=== PATIENT | male | born 1970 | race Caucasian/White ===

== ENCOUNTER → 2018-11-27 | Outpatient (CLI) | payer BC, MEDICAID ==
[~2018-11-27] MED LIST: AMLO10TA PO; AMLO5TAB2 PO; ASP81TEC PO; CATHETER FLUSH 10 ML SYR IV PRN; CRV25T PO; FLUT16SP13 NS; HOLD METFORMIN - RECEIVED CONTRAST 20 ML VIAL IV SCH; IOHEXOL 350 MG/ML 100 ML (OMNIPAQUE 350) VIAL IV ONE; LISI1TAB10 PO; LISI1TAB8 PO; LOVA20TA2 PO; NF-SYM625 PO; NS 100 ML (IVPB) BAG IV ONE; POTA-51 PO; SITA1TAB6 PO
--- NOTE | 2018-11-27 12:27 | Diagnostic Imaging Report ---
PROCEDURE: CT angiography of the chest with contrast. TECHNIQUE: Multiple contiguous axial images were obtained through the chest after uneventful bolus administration of intravenous contrast. 2D reconstructed CTA MIP acquisitions were also performed. Auto Exposure Controls were utilized during the CT exam to meet ALARA standards for radiation dose reduction. INDICATION: Shortness of air and elevated d-dimer. COMPARISON: No prior studies are available for comparison. FINDINGS: Evaluation of the pulmonary arterial system is without evidence of thromboembolism. No filling defects are seen within central, lobar or segmental branches. Thoracic aorta is normal caliber. There is no dissection. The heart is enlarged. There are small to moderate bilateral pleural effusions which layer dependently. Parenchymal evaluation does show some mildly prominent interlobular septa and some mosaic attenuation pattern throughout both lungs. Findings may be owing to mild CHF. There also appear to be some mildly prominent lymph nodes in the mediastinum, indeterminate. Upper abdomen demonstrates a 5.3 cm cyst in the right kidney upper pole as well as several small nonobstructing calculi. Small cyst upper pole left kidney is also seen. IMPRESSION: 1. No evidence of pulmonary embolism or thoracic aortic dissection. 2. Bilateral effusions and prominent interstitial changes, perhaps owing to congestive failure. 3. Nonspecific mediastinal lymphadenopathy. 4. Bilateral renal cysts and nonobstructing right renal calculi. Dictated by: Dictated on workstation # [id number]
== END ==
LOC: RAD 11:31
PROVIDERS: ATTEND Family Medicine
DX: J90 Pleural effusion, not elsewhere classified (principal); N28.1 Cyst of kidney, acquired; N20.0 Calculus of kidney; R59.0 Localized enlarged lymph nodes
CPT/HCPCS: 71275

== ENCOUNTER → 2021-04-01 | Outpatient (CLI) | payer BC ==
[~2021-04-01] MED LIST changes: -CATHETER FLUSH 10 ML SYR IV PRN; -HOLD METFORMIN - RECEIVED CONTRAST 20 ML VIAL IV SCH; -IOHEXOL 350 MG/ML 100 ML (OMNIPAQUE 350) VIAL IV ONE; +LISI1TAB46 PO; -NS 100 ML (IVPB) BAG IV ONE
--- NOTE | 2021-04-01 12:39 | Diagnostic Imaging Report ---
INDICATION: Left ankle injury and pain. TIME OF EXAM: 11:53 AM. FINDINGS: Three views of the left ankle were obtained. The alignment is normal. The ankle mortise is well maintained. The talar dome is smooth. No fractures are seen. There appears to be generalized soft tissue swelling about the medial and lateral ankle. IMPRESSION: Soft tissue swelling. No acute bony abnormality is detected. Dictated by: Dictated on workstation # [id number]
--- NOTE | 2021-04-01 12:39 | Diagnostic Imaging Report ---
INDICATION: Left foot and ankle injury with pain. TIME OF EXAM: 11:55 AM. FINDINGS: Three views of the left foot were obtained. The metatarsals are intact. The phalanges are intact. The midfoot and hindfoot are unremarkable. No fractures are seen. IMPRESSION: No acute bony abnormality is detected. Dictated by: Dictated on workstation # [id number]
== END ==
LOC: RAD 11:24
PROVIDERS: ATTEND Nurse Practitioner Family
DX: S99.912A Unspecified injury of left ankle, initial encounter (principal); S99.922A Unspecified injury of left foot, initial encounter; W19.XXXA Unspecified fall, initial encounter
CPT/HCPCS: 73610; 73630

== ENCOUNTER 2022-02-01 10:06 | Observation (INO) | payer SELFPAY ==
[~2022-02-01] VITALS: Ht 175.3 cm; Wt 101.8 kg
[2022-02-01] MEDS ORDERED: FUROSEMIDE 40 MG/4 ML INJ (LASIX) IVP ONE (10:30)
[2022-02-01] MEDS ORDERED: NITROGLYCERIN 0.4 MG SL TABS BTL 25'S SL PRN (10:30)
[2022-02-01] MEDS ORDERED: ASPIRIN 81 MG CHEW (CHILDREN'S ASA) PO ONE (10:30)
[2022-02-01 10:35] LABS: BASOPHILS # (AUTO) 0.1 10^3/uL (0.0-0.1); BASOPHILS % (AUTO) 1 % (0-10); EOSINOPHILS # (AUTO) 0.1 10^3/uL (0.0-0.3); EOSINOPHILS % (AUTO) 1 % (0-10); HEMATOCRIT 36 % (40-54); HEMOGLOBIN 11.8 g/dL (13.3-17.7); LYMPHOCYTES # (AUTO) 1.3 10^3/uL (1.0-4.0); LYMPHOCYTES % (AUTO) 13 % (12-44); MEAN CORPUSCULAR HEMOGLOBIN 29 pg (25-34); MEAN CORPUSCULAR HGB CONC 33 g/dL (32-36); MEAN CORPUSCULAR VOLUME 88 fL (80-99); MEAN PLATELET VOLUME 9.8 fL (9.0-12.2); MONOCYTES # (AUTO) 0.5 10^3/uL (0.0-1.0); MONOCYTES % (AUTO) 5 % (0-12); NEUTROPHILS # (AUTO) 8.1 10^3/uL (1.8-7.8); NEUTROPHILS % (AUTO) 80 % (42-75); PLATELET COUNT 271 10^3/uL (130-400); WHITE BLOOD COUNT 10.1 10^3/uL (4.3-11.0)
[2022-02-01 10:41] LABS: ALBUMIN 3.6 GM/DL (3.2-4.5)
[2022-02-01 10:42] LABS: INR 1.2 (0.8-1.4); POTASSIUM 3.2 MMOL/L (3.6-5.0); PROTHROMBIN TIME PATIENT 15.6 SEC (12.2-14.7)
[2022-02-01 10:43] LABS: CALCIUM 8.6 MG/DL (8.5-10.1)
--- NOTE | 2022-02-01 10:43 | ED Respiratory ---
General Chief Complaint: Respiratory Problems Stated Complaint: TROUBLE BREATHING Source: patient Exam Limitations: no limitations History of Present Illness Date Seen by Provider: Feb 01, 2022 Time Seen by Provider: 10:13 Initial Comments Patient to the ER by private conveyance with chief complaint last week he has been getting progressively worsening shortness of air. He is not have any fevers or chills. He is not having a productive cough. He has a history of heart failure. He follows with Dr. Warner and used to follow with Dr. VELASCO but he lost his insurance in July. He also stopped taking his medications routinely at that time. He does occasionally take Lasix when he can get it. He was on Coreg and went to Dr. Meredith's [place] and was told that his oxygen saturations ranged anywhere from 61% to 88%. He is denying any chest pain. He has not had any nausea vomiting diarrhea dysuria or constipation. No known sick contacts. He does not use oxygen at baseline. He does have a history of hypertension but no hyperlipidemia. His father started having coronary disease issues in his 40s. He does occasionally use cocaine with his last use being earlier this year. Prediabetic. Allergies and Home Medications Allergies Coded Allergies: No Known Drug Allergies (Unverified , 12/25/14) Patient Home Medication List Home Medication List Reviewed: Yes Carvedilol (Coreg) 25 Mg Tab, 25 MG PO BID Prescribed by: ALISA VELASCO on 05/05/16 1032 Lisinopril/Hydrochlorothiazide (Lisinopril-Hctz 20-12.5 mg Tab) 1 Each Tablet, 2 EACH PO DAILY Prescribed by: ALISA VELASCO on 05/05/16 1032 Olanzapine/Fluoxetine HCl (Symbyax 6-25 mg Capsule) 1 Ea Cap, 1 EA PO HS Prescribed by: ALISA VELASCO on 05/05/16 1032 Review of Systems Review of Systems Constitutional: No chills, No fever, No malaise EENTM: No ear discharge, No ear pain Respiratory: No cough, No short of breath Cardiovascular: No edema, No Hx of Intervention, No palpitations Gastrointestinal: No abdominal pain, No nausea, No vomiting Genitourinary: No discharge, No dysuria Musculoskeletal: No joint swelling, No muscle pain Skin: No pruritus, No rash Psychiatric/Neurological: Denies Headache, Denies Numbness All Other Systems Reviewed Negative Unless Noted: Yes Past Jekvefr-Mprveo-Cdmyew Hx Patient Social History Tobacco Use?: No Use of E-Cig and/or Vaping dev: No Substance use?: No Alcohol Use?: Yes Alcohol type: Beer Alcohol Frequency: Once in a while Pt feels they are or have been: No Immunizations Up To Date Tetanus Booster (TDap): Unknown PED Vaccines UTD: No Influenza Vaccine Up-to-Date: Yes; Up-to-Date First/Initial COVID19 Vaccinat: 2020 Second COVID19 Vaccination Bert: 2020 Seasonal Allergies Seasonal Allergies: No Past Medical History Surgery/Hospitalization HX: HTN, CHF Sleep Apnea Hypertension Reproductive Disorders: No Sexually Transmitted Disease: No HIV/AIDS: No Anxiety, Suicide Attempts, Depression Adverse Reaction/Blood Tranf: No Family Medical History Heart Disease, Cancer, CAD Under 55 Years Old, Hypertension Physical Exam Vital Signs - First Documented 02/01/22 10:08 Temp 36.9 Pulse 94 Resp 24 B/P (MAP) 194/138 (156) Capillary Refill : Height: 5'9.00" Weight: 203lbs. 8.0oz. 92.380177rk; 29.4 BMI Method:Stated General Appearance: WD/WN, mild distress Eyes: Bilateral Eye Normal Inspection, Bilateral Eye PERRL, Bilateral Eye EOMI HEENT: PERRL/EOMI, normal ENT inspection, TMs normal, pharynx normal Neck: full range of motion, supple, normal inspection Respiratory: lungs clear, normal breath sounds, respiratory distress (Tachypnea, 25 to 30 breaths/min, maintaining oxygen saturations 95% since he got here. He is on room air.) Cardiovascular: normal peripheral pulses, regular rate, rhythm, other (Mild edema bilateral lower extremities. Blood pressure 201/136.) Gastrointestinal: non tender Neurologic/Psychiatric: alert; No normal mood/affect (Restless); oriented x 3 Skin: normal color, warm/dry Progress/Results/Core Measures Suspected Sepsis SIRS Temperature: Pulse: Respiratory Rate: Laboratory Tests 02/01/22 10:15: White Blood Count 10.1 Blood Pressure / Mean: Laboratory Tests 02/01/22 10:15: Creatinine 0.99, INR Comment 1.2, Platelet Count 271, Total Bilirubin 2.1H Results/Orders Lab Results Laboratory Tests Test 02/01/22 10:15 02/01/22 10:24 02/01/22 11:53 Range/Units White Blood Count 10.1 4.3-11.0 10^3/uL Red Blood Count 4.14 L 4.30-5.52 10^6/uL Hemoglobin 11.8 L 13.3-17.7 g/dL Hematocrit 36 L 40-54 % Mean Corpuscular Volume 88 80-99 fL Mean Corpuscular Hemoglobin 29 25-34 pg Mean Corpuscular Hemoglobin Concent 33 32-36 g/dL Red Cell Distribution Width 15.0 H 10.0-14.5 % Platelet Count 271 130-400 10^3/uL Mean Platelet Volume 9.8 9.0-12.2 fL Immature Granulocyte % (Auto) 0 % Neutrophils (%) (Auto) 80 H 42-75 % Lymphocytes (%) (Auto) 13 12-44 % Monocytes (%) (Auto) 5 0-12 % Eosinophils (%) (Auto) 1 0-10 % Basophils (%) (Auto) 1 0-10 % Neutrophils # (Auto) 8.1 H 1.8-7.8 10^3/uL Lymphocytes # (Auto) 1.3 1.0-4.0 10^3/uL Monocytes # (Auto) 0.5 0.0-1.0 10^3/uL Eosinophils # (Auto) 0.1 0.0-0.3 10^3/uL Basophils # (Auto) 0.1 0.0-0.1 10^3/uL Immature Granulocyte # (Auto) 0.0 0.0-0.1 10^3/uL Prothrombin Time 15.6 H 12.2-14.7 SEC INR Comment 1.2 0.8-1.4 Activated Partial Thromboplast Time 33 24-35 SEC Sodium Level 140 135-145 MMOL/L Potassium Level 3.2 L 3.6-5.0 MMOL/L Chloride Level 104 98-107 MMOL/L Carbon Dioxide Level 25 21-32 MMOL/L Anion Gap 11 5-14 MMOL/L Blood Urea Nitrogen 15 7-18 MG/DL Creatinine 0.99 0.60-1.30 MG/DL Estimat Glomerular Filtration Rate 91 BUN/Creatinine Ratio 15 Glucose Level 98 70-105 MG/DL Calcium Level 8.6 8.5-10.1 MG/DL Corrected Calcium 8.9 8.5-10.1 MG/DL Magnesium Level 1.8 1.6-2.4 MG/DL Total Bilirubin 2.1 H 0.1-1.0 MG/DL Aspartate Amino Transf (AST/SGOT) 20 5-34 U/L Alanine Aminotransferase (ALT/SGPT) 21 0-55 U/L Alkaline Phosphatase 71 40-136 U/L Myoglobin 82.1 10.0-92.0 NG/ML Troponin I 0.130 H 0.117 H <0.028 NG/ML B-Type Natriuretic Peptide 1034.8 H <100.0 PG/ML Total Protein 7.3 6.4-8.2 GM/DL Albumin 3.6 3.2-4.5 GM/DL Influenza Type A (RT-PCR) Not Detected Not Detecte Influenza Type B (RT-PCR) Not Detected Not Detecte SARS-CoV-2 RNA (RT-PCR) Not Detected Not Detecte My Orders Orders - DEZ,SABRINA J Ekg Tracing (02/01/22 10:21) Cbc With Automated Diff (02/01/22 10:28) Magnesium (02/01/22 10:28) Chest 1 View, Ap/Pa Only (02/01/22 10:28) Comprehensive Metabolic Panel (02/01/22 10:28) Myoglobin Serum (02/01/22 10:28) Protime With Inr (02/01/22 10:28) Partial Thromboplastin Time (02/01/22 10:28) O2 (02/01/22 10:28) Monitor-Rhythm Ecg Trace Only (02/01/22 10:28) Lipid Panel (02/02/22 06:00) Ed Iv/Invasive Line Start (02/01/22 10:28) Bnp [place] (02/01/22 10:28) Troponin I Marcos (02/01/22 10:28) Nitroglycerin 0.4 Mg Btl 25's (Nitrostat (02/01/22 10:30) Aspirin Chewable Tablet (Baby Aspirin Ch (02/01/22 10:30) Furosemide Injection (Lasix Injection) (02/01/22 10:30) Covid 19 Inhouse Test (02/01/22 11:07) Influenza A And B By Pcr (02/01/22 11:07) Nitroglycerin Ointment (Nitrobid Ointme (02/01/22 11:05) Troponin I Marcos (02/01/22 11:47) Ceftriaxone 1 Gm Pre-Mix (Rocephin 1 Gm (02/01/22 13:15) Azithromycin Tablet (Zithromax Tablet) (02/01/22 13:15) Enoxaparin Injection (Lovenox Injection) (02/01/22 13:45) Enoxaparin Injection (Lovenox Injection) (02/01/22 13:45) Ed Admission (Communication) (02/01/22 13:35) Medications Given in ED Current Medications Medications Dose Ordered Sig/Egorge Route Start Time Stop Time Status Last Admin Dose Admin Aspirin 324 mg ONCE ONCE PO 02/01/22 10:30 02/01/22 10:31 DC 02/01/22 10:35 324 MG Furosemide 40 mg ONCE ONCE IVP 02/01/22 10:30 02/01/22 10:31 DC 02/01/22 10:35 40 MG Nitroglycerin 0.4 mg UD PRN SL 02/01/22 10:30 02/01/22 10:35 0.4 MG Nitroglycerin 1 inch STK-MED ONCE .ROUTE 02/01/22 11:05 02/01/22 11:09 DC 02/01/22 11:10 1 INCH Vital Signs/I&O 02/01/22 10:08 Temp 36.9 Pulse 94 Resp 24 B/P (MAP) 194/138 (156) Capillary Refill : Progress Note #1: Time: 10:39 Progress Note I suspect that he is in acute on chronic congestive heart failure. He does have elevated blood pressure significantly as well as some heart strain seen with ST elevation of 1 block in leads V2, V3, V4. We will give him some aspirin and nitroglycerin to help reduce his heart strain and Lasix 40 mg. He has not had any chest pain. Progress Note #2: Time: 13:37 Progress Note The patient has produced 2400 cc of urine on the 40 of Lasix we gave him. His blood pressure has significantly improved at 164/110. He is still not having any chest pain and feeling a little more comfortable but still tachypneic. ECG Initial ECG Impression Date: Feb 01, 2022 Initial ECG Impression Time: 10:25 Initial ECG Rate: 96 Initial ECG Rhythm: Normal Sinus Initial ECG Intervals: Normal Initial ECG Impression: Nonspecific Changes Comment Normal sinus rhythm with intraventricular conduction delay. There is a 1 block elevation of the ST wave in leads V2, V3 and V4 that is not diagnostic for STEMI. Diagnostic Imaging Diagonstic Imaging: Xray Plain Films/CT/US/NM/MRI: chest Comments [facility]. [place], [place] NAME: LALY MALDONADO [facility] REC#: [id number] PT STATUS: REG ER : 1970 PHYSICIAN: SABRINA GARCES MD ADMIT DATE: 02/01/22/ER Draft Date of Exam:02/01/22 CHEST 1 VIEW, AP/PA ONLY CLINICAL INDICATIONS: Patient with trouble breathing/chest pain. EXAM: Portable chest x-ray upright view. COMPARISON: Chest x-ray dated 05/03/2016. FINDINGS: There is interval development of groundglass and patchy airspace opacity involving right midlung field and right lung base. Small airspace opacity in the left lower lung field region which slightly obscures the left heart border. There is no pleural effusion or pneumothorax. Stable cardiomegaly. Pulmonary vasculature is within normal limits. There are small degenerative spurs involving the thoracic spine. IMPRESSION: 1: There is interval follow amount of airspace opacities involving right midlung field and right lung base which may represent lung infiltrates. 2: There is also a small airspace opacity involving the left lower lung field/left upper border which may represent lung infiltrate. 3: There is cardiomegaly with no significant pulmonary vascular congestion. Dictated on workstation # [id number] Dict: 02/01/22 1119 Trans: 02/01/22 1125 CV [id number] Interpreted by: EILSABETH BELCHER MD Electronically signed by: Reviewed: Reviewed by Me Departure Communication (Admissions) Time/Spoke to Admitting Phy: 13:[address] Bentley and she agrees to admit the patient with cardiac consultation. She will put in queued orders. Time/Spoke to Consulting Phy: 13:33 Discussed the case with Dr. Monique who agrees to consult on the case. He would like Lovenox 1 mg/kg and Lasix 40 mg twice daily. Impression Primary Impression: Acute on chronic heart failure Qualified Codes: I50.9 - Heart failure, unspecified Disposition: ADMITTED INPATIENT Condition: Stable Admissions Decision to Admit Reason: Admit from ER (General) Decision to Admit/Date: Feb 01, 2022 Time/Decision to Admit Time: 13:29 Departure-Patient Inst. Referrals: ALISA VELASCO DO (PCP/Family) Primary Care Physician SABRINA GARCES Feb 01, 2022 10:43
[2022-02-01 10:44] LABS: TOTAL PROTEIN 7.3 GM/DL (6.4-8.2)
[2022-02-01 10:46] LABS: BILIRUBIN,TOTAL 2.1 MG/DL (0.1-1.0)
[2022-02-01 10:48] LABS: CREATININE SERUM 0.99 MG/DL (0.60-1.30)
[2022-02-01 10:50] LABS: MAGNESIUM 1.8 MG/DL (1.6-2.4)
[2022-02-01] MEDS ORDERED: NITROGLYCERIN 2% OINT 1 GM UNIT DOSE PACKET ONE (11:05)
--- NOTE | 2022-02-01 11:25 | Diagnostic Imaging Report ---
CLINICAL INDICATIONS: Patient with trouble breathing/chest pain. EXAM: Portable chest x-ray upright view. COMPARISON: Chest x-ray dated 05/03/2016. FINDINGS: There is interval development of groundglass and patchy airspace opacity involving right midlung field and right lung base. Small airspace opacity in the left lower lung field region which slightly obscures the left heart border. There is no pleural effusion or pneumothorax. Stable cardiomegaly. Pulmonary vasculature is within normal limits. There are small degenerative spurs involving the thoracic spine. IMPRESSION: 1: There is interval follow amount of airspace opacities involving right midlung field and right lung base which may represent lung infiltrates. 2: There is also a small airspace opacity involving the left lower lung field/left upper border which may represent lung infiltrate. 3: There is cardiomegaly with no significant pulmonary vascular congestion. Dictated by: Dictated on workstation # [id number]
[2022-02-01] MEDS ORDERED: AZITHROMYCIN 250 MG TAB (ZITHROMAX) PO ONE (13:15)
[2022-02-01] MEDS ORDERED: cefTRIAXone 1 GM PRE-MIX 50 ML IV ONE (13:15)
[2022-02-01] MEDS ORDERED: ENOXAPARIN 80 MG/0.8 ML (LOVENOX) SYR SC ONE (13:45)
[2022-02-01] MEDS ORDERED: ENOXAPARIN INJECTION 30 MG/0.3 ML SYR SC ONE (13:45)
[2022-02-01] MEDS ORDERED: ENOXAPARIN 40 MG/0.4 ML (LOVENOX) SYR SC SCH (14:00)
[2022-02-01] MEDS ORDERED: MELATONIN 3 MG TABLET PO PRN (14:15)
[2022-02-01] MEDS ORDERED: ANTACID SUSP 30 ML UDC (MYLANTA) PO PRN (14:15)
[2022-02-01] MEDS ORDERED: MILK OF MAGNESIA 400 MG/5 ML 30 ML UDC PO PRN (14:15)
[2022-02-01] MEDS ORDERED: PATIENT MAY USE OWN MEDS, ALL PO SCH (14:15)
[2022-02-01] MEDS ORDERED: KCL 20 MEQ TAB (K-DUR) PO ONE (14:15)
[2022-02-01] MEDS ORDERED: ONDANSETRON 4 MG/2 ML (SDV) Z0FRAN IV PRN (14:15)
[2022-02-01 14:45] VITALS: BP 169/102
--- NOTE | 2022-02-01 14:47 | History & Physical-Hospitalist ---
History of Present Illness HPI/Chief Complaint Pt is a 51yoCM with a PMH of HTN, CHF, illicit drug use who presented to the ER due to SOB and hypertensive. He reports he lost his insurance in July and has been unable to see his PCP or get hiis medications since then. He attempted to ration what he had left but has been without them for months now. He was seen by Evonne Wood NP at Dr Meredith's today and advised to seek evaluation in the ER. He was found to have acutely decompensated HF and admitted for observation. He reports feeling better already since first dose of lasix and breathing is improving. Source: patient Date Seen 02/01/22 Time Seen by a Provider: 14:30 Attending Physician Cecille Allen DO PCP Admitting Physician: Praveena Bentley MD Attending Physician: Praveena Bentley MD Referring Physician Date of Admission Feb 01, 2022 at 13:35 Home Medications & Allergies Home Medications Reviewed patient Home Medication Reconciliation performed by pharmacy medication reconciliations central sterilization technician and/or nursing. Patients Allergies have been reviewed. Allergies Allergies Coded Allergies No Known Drug Allergies (Unverified02/01/22) Past Fkquvhk-Juxpmw-Rwrdlo Hx Patient Social History Marrital Status: Employed/Student: unemployed Tobacco Use?: No Use of E-Cig and/or Vaping dev: No Substance use?: No Alcohol Use?: Yes Alcohol type: Beer Alcohol Frequency: Once in a while Pt feels they are or have been: No Immunizations Up To Date First/Initial COVID19 Vaccinat: 2020 Second COVID19 Vaccination Bert: 2020 Tetanus Booster (TDap): Unknown Hepatitis A: Yes Hepatitis B: Yes PED Vaccines UTD: No Seasonal Allergies Seasonal Allergies: No Current Status Communicates: Verbally Primary Language: Guyanese Preferred Spoken Language: Guyanese Past Medical History Sleep Apnea Hypertension Sexually Transmitted Disease: No HIV/AIDS: No Anxiety, Suicide Attempts, Depression Adverse Reaction/Blood Tranf: No Family Medical History Reviewed Nursing Family Hx Heart Disease, Cancer, CAD Under 55 Years Old, Hypertension Review of Systems Constitutional: No chills, No fever EENTM: no symptoms reported Respiratory: cough, dyspnea on exertion, short of breath Cardiovascular: chest pain Gastrointestinal: no symptoms reported Genitourinary: no symptoms reported Musculoskeletal: no symptoms reported Skin: no symptoms reported Psychiatric/Neurological: No Symptoms Reported Physical Exam Physical Exam Vital Signs Vital Signs - First Documented 02/01/22 02/01/22 10:08 14:45 Temp 36.9 Pulse 94 Resp 24 B/P (MAP) 194/138 (156) Pulse Ox 93 O2 Delivery Room Air Capillary Refill : Height, Weight, BMI Height: 5'9.00" Weight: 203lbs. 8.0oz. 92.165579es; 36.00 BMI Method:Stated General Appearance: No Apparent Distress, WD/WN, Anxious HEENT: PERRL/EOMI, Moist Mucous Membranes; No Scleral Icterus (L), No Scleral Icterus (R) Neck: Normal Inspection, Supple Respiratory: Lungs Clear, No Accessory Muscle Use, No Respiratory Distress, Other (Tachypneic) Cardiovascular: Regular Rate, Rhythm, No Murmur Gastrointestinal: Normal Bowel Sounds, Non Tender, Soft Extremity: Normal Capillary Refill, No Calf Tenderness, No Pedal Edema Neurologic/Psychiatric: Alert, Oriented x3, Normal Mood/Affect Skin: Normal Color, Warm/Dry Results Results/Procedures Labs Laboratory Tests 02/03/22 07:38 Patient resulted labs reviewed. Imaging: Reviewed Imaging Report Imaging [facility] [place], [place] NAME: JO[facility]LLALY [facility] REC#: [id number] PT STATUS: ADM Yolette : 1970 PHYSICIAN: SABRINA GARCES MD ADMIT DATE: 02/01/22 Signed Date of Exam:02/01/22 CHEST 1 VIEW, AP/PA ONLY CLINICAL INDICATIONS: Patient with trouble breathing/chest pain. EXAM: Portable chest x-ray upright view. COMPARISON: Chest x-ray dated 05/03/2016. FINDINGS: There is interval development of groundglass and patchy airspace opacity involving right midlung field and right lung base. Small airspace opacity in the left lower lung field region which slightly obscures the left heart border. There is no pleural effusion or pneumothorax. Stable cardiomegaly. Pulmonary vasculature is within normal limits. There are small degenerative spurs involving the thoracic spine. IMPRESSION: 1: There is interval follow amount of airspace opacities involving right midlung field and right lung base which may represent lung infiltrates. 2: There is also a small airspace opacity involving the left lower lung field/left upper border which may represent lung infiltrate. 3: There is cardiomegaly with no significant pulmonary vascular congestion. Dictated by: Dictated on workstation # [id number] Dict: 02/01/22 1119 Trans: 02/01/22 1715 CVB [id number] Interpreted by: ELISABETH BELCHER MD Electronically signed by: ELISABETH BELCHER MD 02/01/22 1715 Assessment/Plan Admission Diagnosis CHF exacerbation Admission Status: Observation Assessment and Plan CHF exacerbation HTN Emergency NSTEMI On room air but dyspneic BNP elevated Continue IV lasix Cardiology consulted, appreciate recs Troponin slightly elevated, ASA and Lovenox given BP improving echo pending CAP Continue abx not septic DVT ppx: Clinical Quality Measures AMI/AHF: ASA po Prior to arrival: PRAVEENA Overton MD Feb 01, 2022 14:47
[2022-02-01 16:45] VITALS: BP 161/97
[2022-02-01] MEDS ORDERED: LOSARTAN 25 MG (COZAAR) TAB PO NR (17:30)
[2022-02-01] MEDS ORDERED: ACETAMINOPHEN 500 MG TAB (TYLENOL) PO PRN (17:30)
[2022-02-01 19:24] VITALS: BP 170/100
[2022-02-01] MEDS: FUROSEMIDE 40 MG/4 ML INJ (LASIX) IV SCH (19:58)
[2022-02-01 20:21] VITALS: BP 151/90
[2022-02-01 23:36] VITALS: BP 153/95
[2022-02-02] VITALS (8 sets, daily range): BP systolic 137–169; BP diastolic 92–122
[2022-02-02 05:51] LABS: HEMATOCRIT 34 % (40-54); HEMOGLOBIN 11.2 g/dL (13.3-17.7); MEAN CORPUSCULAR HEMOGLOBIN 28 pg (25-34); MEAN CORPUSCULAR HGB CONC 33 g/dL (32-36); MEAN CORPUSCULAR VOLUME 85 fL (80-99); MEAN PLATELET VOLUME 10.1 fL (9.0-12.2); PLATELET COUNT 261 10^3/uL (130-400); WHITE BLOOD COUNT 9.1 10^3/uL (4.3-11.0)
[2022-02-02 06:04] LABS: POTASSIUM 2.9 MMOL/L (3.6-5.0)
[2022-02-02 06:05] LABS: CALCIUM 8.2 MG/DL (8.5-10.1)
[2022-02-02 06:10] LABS: CREATININE SERUM 0.94 MG/DL (0.60-1.30)
--- NOTE | 2022-02-02 08:37 | Consultation-Cardiology ---
HPI-Cardiology Cardiology Consultation Date of Consultation 02/02/22 Date of Admission Time Seen by Provider: 08:33 Indication: Congestive heart failure HPI 51-year-old gentleman with severe cardiomyopathy, nonischemic. Patient ran out of his medication for the past 5 months. He lost his insurance. He started to have back pain and increasing shortness of breath and pedal edema. Came into the emergency room and responded to aggressive diuresis. On my evaluation he was feeling better. Denied any chest pain. No palpitation. No syncope or near syncopal episodes Home Medications & Allergies Allergies: Coded Allergies: No Known Drug Allergies (Unverified , 02/01/22) Home Medication List Reviewed: Yes CGI-Irvcar-Monyeo Hx Patient Social History Marital Status: Employed/Student: unemployed Drug of Choice: Cocaine, opiates Smoking Status: Never a Smoker Recent Hopitalizations: No Have you traveled recently?: No Alcohol Use?: Yes Immunizations Up To Date Tetanus Booster (TDap): Unknown Past Medical History Discussed below Family Medical History Significant Family History: Heart Disease, Cancer, CAD Under 55 Years Old, Hypertension Family Medical Hx Noncontributory Review of Systems-General Review of Systems Constitutional: No chills, No fever; malaise, weakness EENTM: No ear discharge, No ear pain Respiratory: see HPI; No cough; dyspnea on exertion, short of breath Cardiovascular: see HPI, chest pain; No edema, No Hx of Intervention, No palpitations, No syncope, No vascular heart diseas, No other Gastrointestinal: No abdominal pain, No nausea, No vomiting Genitourinary: No discharge, No dysuria Musculoskeletal: No joint swelling, No muscle pain Skin: No pruritus, No rash Psychiatric/Neurological: Denies Headache, Denies Numbness All Other Systems Reviewed Negative Unless Noted: Yes Reviewed Test Results Reviewed Test Results Lab Laboratory Tests Test 02/01/22 10:15 02/01/22 10:24 02/01/22 11:53 02/02/22 05:13 Range/Units White Blood Count 10.1 9.1 4.3-11.0 10^3/uL Red Blood Count 4.14 L 3.96 L 4.30-5.52 10^6/uL Hemoglobin 11.8 L 11.2 L 13.3-17.7 g/dL Hematocrit 36 L 34 L 40-54 % Mean Corpuscular Volume 88 85 80-99 fL Mean Corpuscular Hemoglobin 29 28 25-34 pg Mean Corpuscular Hemoglobin Concent 33 33 32-36 g/dL Red Cell Distribution Width 15.0 H 14.8 H 10.0-14.5 % Platelet Count 271 261 130-400 10^3/uL Mean Platelet Volume 9.8 10.1 9.0-12.2 fL Immature Granulocyte % (Auto) 0 % Neutrophils (%) (Auto) 80 H 42-75 % Lymphocytes (%) (Auto) 13 12-44 % Monocytes (%) (Auto) 5 0-12 % Eosinophils (%) (Auto) 1 0-10 % Basophils (%) (Auto) 1 0-10 % Neutrophils # (Auto) 8.1 H 1.8-7.8 10^3/uL Lymphocytes # (Auto) 1.3 1.0-4.0 10^3/uL Monocytes # (Auto) 0.5 0.0-1.0 10^3/uL Eosinophils # (Auto) 0.1 0.0-0.3 10^3/uL Basophils # (Auto) 0.1 0.0-0.1 10^3/uL Immature Granulocyte # (Auto) 0.0 0.0-0.1 10^3/uL Prothrombin Time 15.6 H 12.2-14.7 SEC INR Comment 1.2 0.8-1.4 Activated Partial Thromboplast Time 33 24-35 SEC Sodium Level 140 138 135-145 MMOL/L Potassium Level 3.2 L 2.9 L 3.6-5.0 MMOL/L Chloride Level 104 103 98-107 MMOL/L Carbon Dioxide Level 25 23 21-32 MMOL/L Anion Gap 11 12 5-14 MMOL/L Blood Urea Nitrogen 15 17 7-18 MG/DL Creatinine 0.99 0.94 0.60-1.30 MG/DL Estimat Glomerular Filtration Rate 91 97 BUN/Creatinine Ratio 15 18 Glucose Level 98 98 70-105 MG/DL Calcium Level 8.6 8.2 L 8.5-10.1 MG/DL Corrected Calcium 8.9 8.5-10.1 MG/DL Magnesium Level 1.8 1.6-2.4 MG/DL Total Bilirubin 2.1 H 0.1-1.0 MG/DL Aspartate Amino Transf (AST/SGOT) 20 5-34 U/L Alanine Aminotransferase (ALT/SGPT) 21 0-55 U/L Alkaline Phosphatase 71 40-136 U/L Myoglobin 82.1 10.0-92.0 NG/ML Troponin I 0.130 H 0.117 H <0.028 NG/ML B-Type Natriuretic Peptide 1034.8 H <100.0 PG/ML Total Protein 7.3 6.4-8.2 GM/DL Albumin 3.6 3.2-4.5 GM/DL Influenza Type A (RT-PCR) Not Detected Not Detecte Influenza Type B (RT-PCR) Not Detected Not Detecte SARS-CoV-2 RNA (RT-PCR) Not Detected Not Detecte Triglycerides Level 54 <150 MG/DL Cholesterol Level 116 < 200 MG/DL LDL Cholesterol Direct 89 1-129 MG/DL VLDL Cholesterol 11 5-40 MG/DL HDL Cholesterol 31 L 40-60 MG/DL Physical Exam Physical Exam Vital Signs Vital Signs - First Documented 02/01/22 02/01/22 10:08 14:45 Temp 36.9 Pulse 94 Resp 24 B/P (MAP) 194/138 (156) Pulse Ox 93 O2 Delivery Room Air Capillary Refill : Height, Weight, BMI Height: 5'9.00" Weight: 203lbs. 8.0oz. [id number]; 33.55 BMI Method:Stated General Appearance: No Apparent Distress, WD/WN Eyes: Bilateral Eye Normal Inspection, Bilateral Eye PERRL, Bilateral Eye EOMI HEENT: PERRL/EOMI, TMs Normal, Normal ENT Inspection, Pharynx Normal, Moist Mucous Membranes Neck: Full Range of Motion, Normal Inspection, Non Tender, Supple, Carotid B ruit Respiratory: Chest Non Tender, Normal Breath Sounds, No Accessory Muscle Use, No Respiratory Distress Cardiovascular: Regular Rate, Rhythm, No Edema, No JVD, Normal Peripheral Pulses, Systolic Murmur, Gallop/S3 Gastrointestinal: Normal Bowel Sounds, No Organomegaly, No Pulsatile Mass, Non Tender, Soft Back: Normal Inspection, No CVA Tenderness, No Vertebral Tenderness Extremity: Normal Capillary Refill, Normal Inspection, Normal Range of Motion, Non Tender, No Calf Tenderness, No Pedal Edema Neurologic/Psychiatric: Alert, Oriented x3, No Motor/Sensory Deficits, Normal Mood/Affect Skin: Normal Color, Warm/Dry Lymphatic: No Adenopathy A/P-Cardiology Admission Diagnosis Congestive heart failure, acute on chronic left ventricular systolic dysfunction, nonischemic cardiomyopathy Hypertension Chest pain Assessment/Plan Congestive heart failure, acute on chronic left ventricular systolic dysfunction, nonischemic cardiomyopathy, no recent work-up. Echo done in February 01, 2022 EF 25% I am starting Coreg and losartan. Will continue maximizing medical therapy and consider a LifeVest. Chest pain, nonspecific etiology, atypical. Appears to be musculoskeletal. Mild coronary artery disease per cardiac catheterization 2016, nonobstructive disease. Hypertension, poor control, started on Coreg and losartan, monitor tolerance and response History of alcoholism, currently drink occasionally. Educated on avoiding alcoh ol History of illicit drug use, he has stopped using cocaine and any illegal drugs at least for the past 2 years History of testicular mass. Hypokalemia, secondary to aggressive diuresis, replace and monitor Clinical Quality Measures AMI/AHF: ASA po Prior to arrival: CHYNA Brooke MD Feb 02, 2022 08:37
[2022-02-02] MEDS: ASPIRIN 81 MG CHEW (CHILDREN'S ASA) PO SCH (08:57)
[2022-02-02] MEDS: LOSARTAN 100 MG (COZAAR) TABLET PO SCH (08:57)
[2022-02-02] MEDS: KCL 20 MEQ TAB (K-DUR) PO SCH (08:57)
[2022-02-02] MEDS: FUROSEMIDE 40 MG/4 ML INJ (LASIX) IV SCH ×2 (08:58→19:36)
[2022-02-02] MEDS: POTASSIUM CL 10MEQ/50ML IVPB 50 ML IV SCH ×2 (08:58→10:17)
[2022-02-02] MEDS ORDERED: LOSARTAN 25 MG (COZAAR) TAB PO SCH (09:00)
--- NOTE | 2022-02-02 10:53 | Progress Note - Hospitalist ---
Subjective HPI/CC On Admission Date Seen by Provider: Feb 02, 2022 Pt is a 51yoCM with a PMH of HTN, CHF, illicit drug use who presented to the ER due to SOB and hypertensive. He reports he lost his insurance in July and has been unable to see his PCP or get hiis medications since then. He attempted to ration what he had left but has been without them for months now. He was seen by Evonne Wood NP at Dr Meredith[facility] today and advised to seek evaluation in the ER. He was found to have acutely decompensated HF and admitted for observation. He reports feeling better already since first dose of lasix and breathing is improving. Subjective/Events-last exam Pt reports feeling much better. No complaints. Denies SOB but when reclines he is visibly dyspneic. Pt has multiple questions about getting financial assistance and about pursuing disability. Objective Exam Vital Signs Vital Signs Date Time Temp Pulse Resp B/P (MAP) Pulse Ox O2 Delivery O2 Flow Rate FiO2 02/02/22 08:58 Room Air 02/02/22 07:51 36.9 80 22 161/122 (135) 94 Capillary Refill : General Appearance: No Apparent Distress, Anxious Respiratory: Lungs Clear, Other (dyspneic when reclined) Cardiovascular: Regular Rate, Rhythm, No Murmur Neurologic/Psychiatric: Alert, Oriented x3 Results/Procedures Lab Laboratory Tests 02/02/22 05:13 Patient resulted labs reviewed. Assessment/Plan Assessment and Plan Assess & Plan/Chief Complaint CHF exacerbation HTN Emergency NSTEMI On room air but remains dyspneic Continue IV lasix Cardiology consulted, appreciate recs BP improving Echo shows EF of 25% Discussed with Dr Monique, patient will need fitted for LifeVest, will eventually need a cath Continue ASA, coreg, losaratan CAP Continue abx not septic DVT ppx: Lovenox Clinical Quality Measures AMI/AHF: ASA po Prior to arrival: PRAVEENA Overton MD Feb 02, 2022 10:53
[2022-02-02] MEDS ORDERED: KCL 20 MEQ TAB (K-DUR) PO NR (11:30)
[2022-02-02] MEDS: AZITHROMYCIN 250 MG TAB (ZITHROMAX) PO SCH (11:38)
[2022-02-02] MEDS: CEPHALEXIN 250 MG (KEFLEX) CAP PO SCH ×2 (11:39→19:37)
[2022-02-02] MEDS ORDERED: ENOXAPARIN 40 MG/0.4 ML (LOVENOX) SYR SC SCH (14:00)
[2022-02-03 03:36] VITALS: BP 163/96
[2022-02-03] MEDS: KCL 20 MEQ TAB (K-DUR) PO SCH (06:09)
[2022-02-03 08:03] LABS: POTASSIUM 3.3 MMOL/L (3.6-5.0)
[2022-02-03 08:04] LABS: CALCIUM 9.1 MG/DL (8.5-10.1)
[2022-02-03 08:09] LABS: CREATININE SERUM 1.1 MG/DL (0.60-1.30)
[2022-02-03 08:11] LABS: MAGNESIUM 2.1 MG/DL (1.6-2.4)
[2022-02-03 08:30] VITALS: BP 179/112
[2022-02-03] MEDS: FUROSEMIDE 40 MG/4 ML INJ (LASIX) IV SCH (08:50)
[2022-02-03] MEDS: LOSARTAN 100 MG (COZAAR) TABLET PO SCH (08:51)
[2022-02-03] MEDS: CEPHALEXIN 250 MG (KEFLEX) CAP PO SCH (08:51)
[2022-02-03] MEDS: AZITHROMYCIN 250 MG TAB (ZITHROMAX) PO SCH (08:51)
[2022-02-03] MEDS: ASPIRIN 81 MG CHEW (CHILDREN'S ASA) PO SCH (08:51)
--- NOTE | 2022-02-03 09:39 | Cardiology Progress Note ---
Subjective Date Seen by Provider: Feb 03, 2022 Time Seen by Provider: 08:40 Subjective/Events-last exam Patient laying down in bed, reports dyspnea has significantly improved. Denies any chest pain Review of Systems General: No Chills, No Night Sweats; Fatigue; No Malaise, No Appetite, No Other HEENT: No Head Aches, No Visual Changes, No Eye Pain, No Ear Pain, No Dy sphasia, No Sinus Congestion, No Post Nasal Drip, No Sore Throat, No Other Pulmonary: No Dyspnea, No Cough, No Pleuritic Chest Pain, No Other Cardiovascular: No: Chest Pain, Palpitations, Orthopnea, Paroxysmal Noc. Dyspnea, Edema, Lt Headedness, Other Objective-Cardiology Exam Last Set of Vital Signs Vital Signs 02/03/22 08:30 Temp 36.8 Pulse 85 Resp 19 B/P (MAP) 179/112 (134) Pulse Ox 95 O2 Delivery Room Air I&O Intake and Output 02/03/22 00:00 Intake Total 3034 ml Output Total 2900 ml Balance 134 ml Intake Oral 3000 ml IV Total 34 ml Output Urine Total 2900 ml # Voids 12 # Bowel Movements 1 General: Alert, Oriented X3, Cooperative HEENT: Atraumatic Neck: Supple, No JVD Lungs: Clear to Auscultation, Normal Air Movement Heart: Regular Rate, Normal S1, Normal S2 Abdomen: Soft, No Tenderness Extremities: No Clubbing, Other (trace edema) Skin: No Rashes, No Breakdown Neuro: Normal Speech, Cranial Nerves 3-12 NL Psych/Mental Status: Mental Status NL, Mood NL Results Lab Laboratory Tests 02/03/22 07:38 A/P-Cardiology Admission Diagnosis Congestive heart failure, acute on chronic left ventricular systolic dysfunction, nonischemic cardiomyopathy Hypertension Chest pain Assessment/Plan Congestive heart failure, acute on chronic left ventricular systolic dysfunction, nonischemic cardiomyopathy, no recent work-up. Echo done in February 01, 2022 EF 25% Started on Coreg and losartan, lasix. I will change IV Lasix to 40mg PO daily, additional dose as need Will continue maximizing medical therapy LifeVest ordered We discussed in length regarding limiting fluid intake and avoiding any alcohol. Consider stress test as outpatient Chest pain, nonspecific etiology, atypical. Appears to be musculoskeletal. Mild coronary artery disease per cardiac catheterization 2015, nonobstructive disease. Hypertension, poor control, started on Coreg and losartan, monitor tolerance and response History of alcoholism, currently drink occasionally. Educated on avoiding alcohol History of illicit drug use, he has stopped using cocaine and any illegal drugs at least for the past 2 years History of testicular mass. Hypokalemia, secondary to aggressive diuresis, replace and monitor Supervisory-Addendum Brief Supervisory Addendum Participated in pt care: history, MDM, physical Personally performed: exam, history, MDM Care discussed with: BRANDAN Results interpretation: Verified all documentation Notes: Patient was seen and evaluated with Devika, examination performed, management plan was discussed, agree with the current scribed note, I made few changes to the note using Italic font Patient was seen at bedside, sitting comfortably, feeling better Breathing better Discussed in length the management plan, compliance with diet and medication with limiting fluid intake and avoiding alcohol Daily weight I will arrange for follow-up as an outpatient DEVIKA SANCHES Feb 03, 2022 09:39 CHYNA BURNS MD Feb 03, 2022 11:08
[2022-02-03] MEDS ORDERED: KCL 20 MEQ TAB (K-DUR) PO NR (10:00)
[2022-02-03] MEDS ORDERED: CEPH250C PO (10:29)
[2022-02-03] MEDS ORDERED: FURO-124 PO (10:29)
[2022-02-03] MEDS ORDERED: ASPI81TA64 PO (10:29)
[2022-02-03] MEDS ORDERED: CARV6.252 PO (10:29)
[2022-02-03] MEDS ORDERED: AZIT250T12 PO (10:29)
[2022-02-03] MEDS ORDERED: LOSA100T57 PO (10:29)
[2022-02-03 11:36] VITALS: BP 154/96
--- NOTE | 2022-02-03 13:20 | Discharge Inst-Simple/Standard ---
Discharge Inst-Standard Discharge Medications New, Converted or Re-Newed RX: Transmitted to Pharmacy Patient Instructions/Follow Up Plan of Care/Instructions/FU: Please continue to take your medications as written. Please follow up with your primary care doctor to follow up this hospital stay. Activity as Tolerated: Yes Discharge Diet: Low Sodium Diet, Cardiac Diet Return to The Hospital For: Chest pain, shortness of breath, fever, weakness, if you feel you are getting worse. PRAVEENA MOBLEY MD Feb 03, 2022 13:20
== END 2022-02-03 14:11 | disposition home or self-care (01) ==
LOC: EDUNIT# 10:06 → ER 10:09 → INTOOBSV 13:35 → UNDOADMOB 13:35 → 4TH 13:35 → UNDODISOB 02-03 14:11
PROVIDERS: ADMIT Family Medicine; ATTEND Family Medicine
DX: I11.0 Hypertensive heart disease with heart failure (principal); I50.9 Heart failure, unspecified; I34.0 Nonrheumatic mitral (valve) insufficiency; I16.0 Hypertensive urgency; I21.4 Non-ST elevation (NSTEMI) myocardial infarction; J18.9 Pneumonia, unspecified organism
CPT/HCPCS: 71045; 80048 ×2; 80053; 80061; 83735 ×2; 83874; 83880; 84484; 85025; 85027; 85610; 85730; 87636; 93005; 93041; 93306; 96366; 96372 ×3; 96374; 96376 ×3; 99284; G0378; 36415

== ENCOUNTER → 2022-05-04 | Outpatient (CLI) | payer OTHER ==
[~2022-05-04] MED LIST changes: +ASPI81TA64 PO; +AZIT250T12 PO; +CARV6.252 PO; +CEPH250C PO; +FURO-124 PO; +LOSA100T57 PO
== END ==
LOC: CARD 11:01
PROVIDERS: ATTEND Internal Medicine Cardiovascular Disease
DX: I51.7 Cardiomegaly (principal); I51.89 Other ill-defined heart diseases; I50.9 Heart failure, unspecified
CPT/HCPCS: 93306

== ENCOUNTER → 2022-08-02 | Outpatient (CLI) | payer OTHER | LOC: CARD 09:33 | PROVIDERS: ATTEND Physician Assistant | DX: I25.10 Atherosclerotic heart disease of native coronary artery without angina pectoris (principal); I11.0 Hypertensive heart disease with heart failure | CPT/HCPCS: 93306 ==

== ENCOUNTER → 2022-08-30 | Outpatient (CLI) | payer OTHER ==
[~2022-08-30] VITALS: Ht 175 cm; Wt 101.0 kg
[~2022-08-30] MED LIST changes: +CATHETER FLUSH 10 ML SYR IVP PRN; +REGADENOSON 0.4 MG/5 ML SYR (LEXISCAN) IV ONE
[2022-08-30 09:15] VITALS: BP 220/118
--- NOTE | 2022-08-30 10:54 | Cardiology Stress Test Report ---
Stress Test Report Date of Procedure/Referring: Date of Procedure: Aug 30, 2022 [facility] Admitting Physician Admitting Physician: Attending Physician: Chyna Monique MD Indications: HTN Baseline Heart Rate: 69 Baseline Blood Pressure: Blood Pressure Systolic: 220 Blood Pressure Diastolic: 118 Baseline Vitals Vital Signs Date Time Temp Pulse Resp B/P (MAP) Pulse Ox O2 Delivery O2 Flow Rate FiO2 08/30/22 09:15 76 220/118 (152) Baseline EKG: Baseline EKG: NSR Summary After explaining the procedure to the patient, he signed a consent and then brought to the stress nuclear laboratory. Patient received 0.4 mg Lexiscan for stress test, ECG, heart rate and blood pressure were monitored continuously. Resting and stress dose of radio tracer were injected, imaging was acquired and reviewed in short axis, horizontal long axis and vertical long axis views. TID: 0.88 SSS: 5 SDS: 3 EF: 36 Patient tolerated Lexiscan well Motion artifact with diaphragmatic attenuation affecting the quality of the images, reversible ischemia involving the mid to apical inferior wall and inferolateral wall Diffuse left ventricular hypokinesia with ejection fraction 36%. Copy Copies To 1: [facility]/CHYNA CLEMENT MD Aug 30, 2022 10:54
== END ==
LOC: CARD 07:37
PROVIDERS: ATTEND Internal Medicine Cardiovascular Disease
DX: I10 Essential (primary) hypertension (principal); I25.10 Atherosclerotic heart disease of native coronary artery without angina pectoris
CPT/HCPCS: 78452; 93017; A9502

== ENCOUNTER 2022-09-08 08:50 | Day surgery (SDC) | payer OTHER ==
[~2022-09-08] VITALS: Ht 175.3 cm; Wt 105.7 kg
[2022-09-08] VITALS (11 sets, daily range): BP systolic 153–194; BP diastolic 86–114
[~2022-09-08 08:50] MED LIST changes: -CATHETER FLUSH 10 ML SYR IVP PRN; -REGADENOSON 0.4 MG/5 ML SYR (LEXISCAN) IV ONE
[2022-09-08] MEDS ORDERED: NS IV 1000 ML 1,000 ML ONE (09:25)
[2022-09-08] MEDS ORDERED: HEParin (CATH LAB) 2,000 ML IV ONE (09:26)
[2022-09-08] MEDS ORDERED: NS IV 1000 ML 1,000 ML IV SCH ×2 (09:30→11:15)
[2022-09-08] MEDS ORDERED: LIDOCAINE 1% INJ 20 ML VIAL ONE (09:33)
[2022-09-08 09:47] LABS: HEMATOCRIT 44 % (40-54); MEAN CORPUSCULAR HEMOGLOBIN 29 pg (25-34); MEAN CORPUSCULAR HGB CONC 34 g/dL (32-36); MEAN CORPUSCULAR VOLUME 86 fL (80-99); MEAN PLATELET VOLUME 9.5 fL (9.0-12.2); PLATELET COUNT 196 10^3/uL (130-400); WHITE BLOOD COUNT 6.7 10^3/uL (4.3-11.0)
--- NOTE | 2022-09-08 09:55 | Cardiac Procedure Note-CS/ASA ---
Pre-Procedure Note Pre-Op Procedure Note Date of Available H&P: Aug 31, 2022 Date H&P Reviewed: Sep 08, 2022 Time H&P Reviewed: 09:54 History & Physical: H&P Reviewed, Patient Examed, No changes noted Pre-Operative Diagnosis: CAD Moderate Sedation PreProcedure Time 09:55 ASA Score 3 Airway Lungs Heart ASA score ASA 1: a normal healthy patient ASA 2: a patient with a mild systemic disease (mid diabetes, controlled hypertension, obesity ASA 3: a patient with a severe systemic disease that limits activity (angina, COPD, prior Myocardial infarction) ASA 4: a patient with an incapacitating disease that is a constant threat to life (CHF, renal failure) ASA 5: a moribund patient not expected to survive 24 hrs. (ruptured aneurysm) ASA 6: a declared brain- patient whose organs are being harvested. For emergent operations, add the letter E after the classification Mallampati Classification Grade 3 Sedation Plan Analgesia, Amnesia, Plan communicated to team members, Discussed options with patient/fam, Discussed risks with patient/fam The patient is an appropriate candidate to undergo the planned procedure, sedation, and anesthesia. The patient immediately re-assessed prior to indication. CHYNA BURNS MD Sep 08, 2022 09:55
[2022-09-08 10:05] LABS: INR 1.1 (0.8-1.4); PROTHROMBIN TIME PATIENT 14.3 SEC (12.2-14.7)
[2022-09-08] MEDS ORDERED: VERAPAMIL 5 MG/2 ML (CALAN) VIAL IV ONE (10:05)
[2022-09-08] MEDS ORDERED: fentaNYL INJ 100 MCG/2 ML AMP ONE (10:05)
[2022-09-08] MEDS ORDERED: HEParin 1000 UNIT/ML (10ML VIAL) FOR BOLUS ONE (10:05)
[2022-09-08] MEDS ORDERED: NITRO DRIP 25000 MCG/D5W 250 ML IV ONE (10:05)
[2022-09-08] MEDS ORDERED: MIDAZOLAM 5 MG/5 ML (VERSED) VIAL ONE (10:05)
--- NOTE | 2022-09-08 10:05 | Diagnostic Imaging Report ---
Clinical indications: Pre-heart catheter with coronary angiography with left ventriculography with possible angioplasty and stent. EXAM: Portable chest x-ray upright view. COMPARISON: Chest x-ray dated 02/01/2022. FINDINGS: Lungs/pleura: There is minimal airspace opacity in the lingular region which is also noted on prior study which may represent atelectasis. The remainder of the lungs are clear. There is no pneumothorax. There is no pleural effusion. Mediastinum: Unremarkable. Pulmonary vasculature: Unremarkable. Heart: Unremarkable. Bones/extrathoracic soft tissue: Unremarkable. IMPRESSION: 1: Stable small airspace opacity in the lingular region which may represent atelectasis or scarring. 2: There is no radiographic evidence of acute cardiopulmonary process. Dictated by: Dictated on workstation # [id number]
[2022-09-08 10:11] LABS: BILIRUBIN,TOTAL 1.2 MG/DL (0.1-1.0); CALCIUM 9.3 MG/DL (8.5-10.1); CREATININE SERUM 1.37 MG/DL (0.60-1.30); POTASSIUM 3.9 MMOL/L (3.6-5.0); TOTAL PROTEIN 7.7 GM/DL (6.4-8.2)
[2022-09-08] MEDS ORDERED: ESCI-2 PO (10:23)
[2022-09-08] MEDS ORDERED: CETI10TA17 PO (10:23)
[2022-09-08] MEDS ORDERED: FURO20TA4 PO (10:23)
[2022-09-08] MEDS ORDERED: CARV25TA PO (10:23)
[2022-09-08] MEDS ORDERED: SPIR50TA4 PO (10:23)
[2022-09-08] MEDS ORDERED: HYDR50TA76 PO (10:23)
[2022-09-08] MEDS ORDERED: ASPI-1238 PO (10:23)
[2022-09-08] MEDS ORDERED: EMPA10TA PO (10:23)
[2022-09-08] MEDS ORDERED: LOSA100T57 PO (10:23)
--- NOTE | 2022-09-08 11:06 | Discharge Inst-Post CATH ---
Discharge Inst-CATH/EP Problems Reviewed?: Yes Post Cardiac Cath/EP D/C Inst Follow Up/Plan Appointment with Dr. Monique's office in 4 weeks <b>CARDIAC CATH/EP PROCEDURE DISCHARGE INSTRUCTIONS</b> ACTIVITY * Go Home directly and rest. * Limit activity of the leg (or wrist if it was used) for 7 days including aerobics, swimming, jogging, bicycling, etc. * Restrict stair-climbing for 7 days if possible, if not, climb up with your non-cath leg, then bring together on the same step. * Avoid lifting, pushing, pulling or excessive movement of the affected extremity for 7 days. * Customary sexual activity may be resumed after 2 days-use caution not to use a position that strains or causes pain to the affected extremity. * No driving for 24 hours. * NO SMOKING. * Avoid straining for bowel movements for 7 days. * Gentle walking on level ground is allowed. * Returning to work will depend on the type of procedure and the results. Your doctor will discuss this with you. CALL YOUR DOCTOR FOR ANY OF THE FOLLOWING: *If bleeding from the puncture site occurs- Apply gentle pressure to site with clean cloth and call your doctor or EMS. * If a knot or lump forms under the skin, increases in size, or causes pain. * If bruising appears to be worsening or moving further down your leg instead of disappearing. * Temperature above 101 F. CARE OF YOUR GROIN INCISION; * Bruising or purple discoloration of the skin near the puncture site is common. * You may shower only, no bathtub bathing for 5 days. Be careful to avoid slipping as your leg may feel stiff. * If a closure device was used on your femoral artery, please see the attached guide regarding care of the device and your leg. * Leave dressing on FOR 24 hours. CARE OF YOUR WRIST INCISION; * Bruising or purple discoloration of the skin near the puncture site is common. * You may shower. * DO NOT submerge wrist. * Leave dressing on FOR 24 hours. CHYNA MONIQUE MD Sep 08, 2022 11:06
--- NOTE | 2022-09-08 11:10 | Cardiac Cath Report ---
Cardiac Cath Report Physician (s)/Group Care Worker (s) Physician CHYNA BURNS MD Pre-Procedure Diagnosis Pre-Procedure Diagnosis: CAD Post-Procedure Note Procedure Start Date: Sep 08, 2022 Name of Procedure: Left heart catheterization IFR to the circumflex artery IFR to the right coronary artery Findings/Procedure Note PROCEDURE NOTE: 52-year-old gentleman with history of hypertension, hyperlipidemia, had an abnormal stress test. Scheduled for cardiac catheterization possible PTCA. After explaining the procedure to the patient, all pros and cons were explained, all questions were answered. The patient signed the consent and then he was placed in the cardiac catheterization laboratory. Groin was prepped in SL fashion local anesthesia was used. Sheath placed in the right radial artery, Alma catheter was advanced to the left ventricular cavity, pressure was measured, pullback LV to aorta was done, engage the right and left coronary system and angiogram was done. Patient had 2 lesions noted in his coronary system, received total of 6000 units of heparin Rad left guide was used and IFR wire was advanced and parked in the distal circumflex artery, IFR was 1.0 Guide was exchanged to a Rad right guide and engaged the right coronary system and IFR was measured through the right coronary artery and it was 0.91. At the end of the procedure the sheath was removed. Vascular band was used FINDINGS: Hemodynamics LV 160/18, end-diastolic pressure of 18 Aorta 159/101 mean of 120 ANATOMY: Left Main is free of obstructive disease Left Anterior Descending has no obstructive disease Left Circumflex has 50% stenosis with 90 degree angle, IFR was 1.0. Nonobstructive disease Right Coronary Artery has diffuse ectasia with 50% stenosis in the mid right coronary artery, IFR was 0.91, nonobstructive disease, dominant artery LV Gram was not done, pressure was measured Dominance right coronary artery CONCLUSION: 50% stenosis in the mid circumflex artery with IFR 1.0 nonobstructive disease 50% stenosis in the mid right coronary artery with ectasia in the proximal right coronary artery, dominant artery, IFR 0.91, nonobstructive disease Otherwise no significant obstructive disease in the LAD. DISCUSSION AND RECOMMENDATION: Continue to maximize medical therapy no intervention is warranted Anesthesia Type: Conscious Sedation Estimated blood loss (mL): 25 ml Contrast Amount: 120 ml Total Radiation Dose: 770 mGy Post-Procedure Diagnosis Post-operative diagnosis: Chest pain Coronary artery disease Hypertension Hyperlipidemia CHYNA BURNS MD Sep 08, 2022 11:10
[2022-09-08] MEDS ORDERED: ATOR10TA PO (11:11)
== END 2022-09-08 14:05 | disposition home or self-care (01) ==
LOC: CATH 08:50 → SDC 11:10 → CATH 14:05
PROVIDERS: ATTEND Internal Medicine Cardiovascular Disease
DX: I25.10 Atherosclerotic heart disease of native coronary artery without angina pectoris (principal); I11.0 Hypertensive heart disease with heart failure; E78.5 Hyperlipidemia, unspecified; R94.39 Abnormal result of other cardiovascular function study; I50.23 Acute on chronic systolic (congestive) heart failure; I42.8 Other cardiomyopathies; F10.21 Alcohol dependence, in remission; E87.6 Hypokalemia; N52.9 Male erectile dysfunction, unspecified; R07.2 Precordial pain; Z79.899 Other long term (current) drug therapy
CPT/HCPCS: 71045; 80053; 80061; 85027; 85347; 85610; 85730; 87081; 93005; 93458; 93571; 93572; C1769; C1887 ×2; C1894; 36415

== ENCOUNTER 2022-10-11 09:58 | Emergency (ER) | payer OTHER ==
[~2022-10-11] VITALS: Ht 175.2 cm; Wt 105.7 kg
[~2022-10-11 09:58] MED LIST changes: +ASPI-1238 PO; +ATOR10TA PO; +CARV25TA PO; +CETI10TA17 PO; +EMPA10TA PO; +ESCI-2 PO; +FURO20TA4 PO; +HYDR50TA76 PO; +SPIR50TA4 PO
--- NOTE | 2022-10-11 10:10 | ED Dyspnea ---
General Stated Complaint: SOB Source of Information: Patient Exam Limitations: No Limitations History of Present Illness Date Seen by Provider: October 11, 2022 Time Seen by Provider: 09:57 Initial Comments 52-year-old male presents emerged department today for shortness of breath. Symptoms started last night and have been progressive throughout the day today. Denies any fevers but has had a progressive cough over the last week or so. He is productive of clear sputum. He had a heart cath about a year ago and states he had 2 stents with 50% blockage but no other occlusions and no interventions performed. All other systems reviewed and negative except documented per HPI. Voice recognition software was used to help create this chart Allergies and Home Medications Allergies Coded Allergies: No Known Drug Allergies (Unverified , 02/01/22) Patient Home Medication List Home Medication List Reviewed: Yes Aspirin (Aspirin EC) 81 Mg Tablet.dr, 81 MG PO DAILY, (Reported) Entered as Reported by: ARTURO TALAMANTES on 09/08/22 1023 Atorvastatin Calcium (Lipitor) 10 Mg Tablet, 10 MG PO DAILY Prescribed by: CHYNA MONIQUE on 09/08/22 1111 Carvedilol (Carvedilol) 25 Mg Tablet, 50 MG PO DAILY, (Reported) Entered as Reported by: ARTURO TALAMANTES on 09/08/22 1023 Cetirizine HCl (Cetirizine HCl) 10 Mg Tablet, 10 MG PO DAILY PRN for ALLERGIES, (Reported) Entered as Reported by: ARTURO TALAMANTES on 09/08/22 1023 Empagliflozin (Jardiance) 10 Mg Tablet, 10 MG PO DAILY, (Reported) Entered as Reported by: ARTURO TALAMANTES on 09/08/22 1023 Escitalopram Oxalate (Escitalopram Oxalate) 10 Mg Tablet, 10 MG PO DAILY, (Reported) Entered as Reported by: ARTURO TALAMANTES on 09/08/22 1023 Furosemide (Furosemide) 20 Mg Tablet, 40 MG PO DAILY, (Reported) Entered as Reported by: ARTURO TALAMANTES on 09/08/22 1023 Hydroxyzine HCl (Hydroxyzine HCl) 50 Mg Tablet, 50 MG PO DAILY, (Reported) Entered as Reported by: ARTURO TALAMANTES on 09/08/22 1023 Losartan Potassium (Losartan Potassium) 100 Mg Tablet, 150 MG PO DAILY, (Reported) Entered as Reported by: ARTURO TALAMANTES on 09/08/22 1023 Spironolactone (Spironolactone) 50 Mg Tablet, 50 MG PO DAILY, (Reported) Entered as Reported by: ARTURO TALAMANTES on 09/08/22 1023 Review of Systems Review of Systems Constitutional: see HPI Past Jxramfl-Fgersn-Ohbkte Hx Immunizations Up To Date Tetanus Booster (TDap): Unknown PED Vaccines UTD: No First/Initial COVID19 Vaccinat: 2020 Second COVID19 Vaccination Bert: 2020 Seasonal Allergies Seasonal Allergies: No Past Medical History Surgery/Hospitalization HX: HTN, CHF Cardiac, Orthopedic Sleep Apnea Currently Using CPAP: No Hypertension Reproductive Disorders: No Sexually Transmitted Disease: No HIV/AIDS: No Anxiety, Suicide Attempts, Depression Adverse Reaction/Blood Tranf: No Family Medical History Heart Disease, Cancer, CAD Under 55 Years Old, Hypertension Physical Exam Vital Signs Vital Signs - First Documented 10/11/22 10:02 Temp 36.0 Pulse 76 Resp 20 B/P (MAP) 142/89 (106) Pulse Ox 99 O2 Delivery Room Air Capillary Refill : Height, Weight, BMI Height: 5'9.00" Weight: 203lbs. 8.0oz. 92.007132ik; 34.39 BMI Method:Stated General Appearance: WD/WN HEENT: Normal ENT Inspection, Pharynx Normal Neck: Full Range of Motion, Normal Inspection, Non Tender, Supple Respiratory: Chest Non Tender, Other (Patient is hyperventilating with accessory muscle use.) Cardiovascular: Regular Rate, Rhythm, No Murmur, Normal Peripheral Pulses Gastrointestinal: Normal Bowel Sounds, No Organomegaly, Non Tender, Soft Extremity: Normal Capillary Refill, Normal Inspection, No Pedal Edema Neurologic/Psychiatric: Alert, Oriented x3 Skin: Normal Color, Warm/Dry Progress/Results/Core Measures Results/Orders Lab Results Laboratory Tests Test 10/11/22 10:07 10/11/22 10:13 10/11/22 12:20 Range/Units White Blood Count 5.8 4.3-11.0 10^3/uL Red Blood Count 5.00 4.30-5.52 10^6/uL Hemoglobin 15.0 13.3-17.7 g/dL Hematocrit 43 40-54 % Mean Corpuscular Volume 86 80-99 fL Mean Corpuscular Hemoglobin 30 25-34 pg Mean Corpuscular Hemoglobin Concent 35 32-36 g/dL Red Cell Distribution Width 13.0 10.0-14.5 % Platelet Count 167 130-400 10^3/uL Mean Platelet Volume 9.5 9.0-12.2 fL Immature Granulocyte % (Auto) 0 % Neutrophils (%) (Auto) 49 42-75 % Lymphocytes (%) (Auto) 29 12-44 % Monocytes (%) (Auto) 19 H 0-12 % Eosinophils (%) (Auto) 2 0-10 % Basophils (%) (Auto) 1 0-10 % Neutrophils # (Auto) 2.9 1.8-7.8 10^3/uL Lymphocytes # (Auto) 1.7 1.0-4.0 10^3/uL Monocytes # (Auto) 1.1 H 0.0-1.0 10^3/uL Eosinophils # (Auto) 0.1 0.0-0.3 10^3/uL Basophils # (Auto) 0.0 0.0-0.1 10^3/uL Immature Granulocyte # (Auto) 0.0 0.0-0.1 10^3/uL Neutrophils % (Manual) 57 % Lymphocytes % (Manual) 24 % Monocytes % (Manual) 13 % Eosinophils % (Manual) 4 % Basophils % (Manual) 0 % Band Neutrophils 2 % Blood Morphology Comment NORMAL D-Dimer 0.42 0.00-0.49 UG/ML Sodium Level 136 135-145 MMOL/L Potassium Level 4.0 3.6-5.0 MMOL/L Chloride Level 104 98-107 MMOL/L Carbon Dioxide Level 22 21-32 MMOL/L Anion Gap 10 5-14 MMOL/L Blood Urea Nitrogen 20 H 7-18 MG/DL Creatinine 1.98 H 0.60-1.30 MG/DL Estimat Glomerular Filtration Rate 39 BUN/Creatinine Ratio 10 Glucose Level 127 H 70-105 MG/DL Calcium Level 8.8 8.5-10.1 MG/DL Corrected Calcium 8.8 8.5-10.1 MG/DL Total Bilirubin 1.1 H 0.1-1.0 MG/DL Aspartate Amino Transf (AST/SGOT) 19 5-34 U/L Alanine Aminotransferase (ALT/SGPT) 14 0-55 U/L Alkaline Phosphatase 96 40-136 U/L Troponin I 0.039 H 0.044 H <0.028 NG/ML Total Protein 8.1 6.4-8.2 GM/DL Albumin 4.0 3.2-4.5 GM/DL SARS-CoV-2 RNA (RT-PCR) Not Detected Not Detecte My Orders Orders - JAMPATRICK Bell Comprehensive Metabolic Panel (10/11/22 10:06) Troponin I [place] (10/11/22 10:06) Fibrin Degradation Products (10/11/22 10:06) Chest 1 View, Ap/Pa Only (10/11/22 10:06) Cbc With Automated Diff (10/11/22 10:06) Ekg Tracing (10/11/22 10:06) Covid 19 Inhouse Test (10/11/22 10:06) Manual Differential (10/11/22 10:07) Troponin I [place] (10/11/22 12:00) Vital Signs/I&O 10/11/22 10:02 Temp 36.0 Pulse 76 Resp 20 B/P (MAP) 142/89 (106) Pulse Ox 99 O2 Delivery Room Air Comment Sinus rhythm with a rate of 67 bpm. First-degree AV block with a [place] of 220. QRS 126. Left axis deviation. No ST or T wave abnormalities. No ectopy. No STEMI. Departure Communication (Admissions) Patient initially seemingly hyperventilating with some moderate respiratory distress. Symptoms improved with observation alone, no interventions. His chest x-ray is clear. His initial troponin is slightly elevated. On record review looks like he always has a slightly elevated troponin is actually less than it had been in the past. With that I opted to recheck it again in 2 hours. He went from 0.039-0.044. Slightly elevated but really stable. I called Dr. Monique who states that the patient has coronary ectasia, small vessel disease. He is not surprised that he makes a small amount of troponin chronically. Given the patient is symptom-free he thinks he is stable to follow-up in the office given that he had a heart cath about 1 month ago showing only 50% stenosis in a couple of areas. The patient is comfortable agreeable to this at this time. Dr. Monique states he will see him in the clinic in 1-2 weeks. Impression Primary Impression: Dyspnea Qualified Codes: R06.00 - Dyspnea, unspecified Disposition: HOME, SELF-CARE Condition: Stable Departure-Patient Inst. Referrals: [facility] (PCP/Family) Primary Care Physician Patient Instructions: Shortness of Breath (Dyspnea) (DC) Add. Discharge Instructions: Dr. Monique wants to see you in the clinic in 1-2 weeks. Please call to schedule this follow-up appointment. Your symptoms have resolved at present. Please return to the emergency department for any severe concerns, specifically if you develop any severe chest pain. Follow-up with your primary doctor for any nonemergent needs. PATRICK POLK DO October 11, 2022 10:10
[2022-10-11 10:18] LABS: BASOPHILS % (AUTO) 1 % (0-10); EOSINOPHILS # (AUTO) 0.1 10^3/uL (0.0-0.3); EOSINOPHILS % (AUTO) 2 % (0-10); HEMATOCRIT 43 % (40-54); LYMPHOCYTES # (AUTO) 1.7 10^3/uL (1.0-4.0); LYMPHOCYTES % (AUTO) 29 % (12-44); MEAN CORPUSCULAR HEMOGLOBIN 30 pg (25-34); MEAN CORPUSCULAR HGB CONC 35 g/dL (32-36); MEAN CORPUSCULAR VOLUME 86 fL (80-99); MEAN PLATELET VOLUME 9.5 fL (9.0-12.2); MONOCYTES # (AUTO) 1.1 10^3/uL (0.0-1.0); MONOCYTES % (AUTO) 19 % (0-12); NEUTROPHILS # (AUTO) 2.9 10^3/uL (1.8-7.8); NEUTROPHILS % (AUTO) 49 % (42-75); PLATELET COUNT 167 10^3/uL (130-400); WHITE BLOOD COUNT 5.8 10^3/uL (4.3-11.0)
[2022-10-11 10:32] LABS: CALCIUM 8.8 MG/DL (8.5-10.1)
[2022-10-11 10:33] LABS: TOTAL PROTEIN 8.1 GM/DL (6.4-8.2)
--- NOTE | 2022-10-11 10:33 | Diagnostic Imaging Report ---
INDICATION: Dyspnea Single AP view of the chest is obtained with comparison made to study of 09/08/2022. Heart size and pulmonary vascularity are within normal limits. Background air trapping is again noted. The focal lingular density described on the previous examination has not changed. IMPRESSION: Stable background emphysema with focal lingular density which has remained stable. Continued clinical correlation and radiographic followup would be of use. Dictated by: Dictated on workstation # [id number]
[2022-10-11 10:35] LABS: BILIRUBIN,TOTAL 1.1 MG/DL (0.1-1.0)
[2022-10-11 10:37] LABS: CREATININE SERUM 1.98 MG/DL (0.60-1.30)
[2022-10-11 11:03] LABS: BAND NEUTROPHILS 2 %; BASOPHILS % (MANUAL) 0 %; EOSINOPHILS % (MANUAL) 4 %; LYMPHOCYTES % (MANUAL) 24 %; MONOCYTES % (MANUAL) 13 %; NEUTROPHILS % (MANUAL) 57 %; RBC MORPH NORMAL
[2022-10-11 13:20] VITALS: BP 116/64
== END 2022-10-11 13:20 | disposition home or self-care (01) ==
LOC: EDUNIT# 09:58 → ER 10:00
DX: R06.02 Shortness of breath (principal); Z20.822 Contact with and (suspected) exposure to COVID-19
CPT/HCPCS: 36415; 71045; 80053; 84484; 85007; 85027; 85379; 87636; 93005